=== PATIENT | female | born 1995 | race American Indian/Alaskan Native ===

== ENCOUNTER 2016-08-19 12:46 | Outpatient (CLI) | payer MEDICARE ==
[2016-08-19 13:26] LABS: Alanine Aminotransferase 16 units/L (7-56); Albumin 4.3 g/dL (3.9-5); Alkaline Phosphatase 197 units/L (35-129); Anion Gap 17 mmol/L; BUN/Creatinine Ratio 11.25; Bilirubin,Total 0.3 mg/dL (0.1-1.2); Blood Urea Nitrogen 9 mg/dL (7-17); Calcium 9.2 mg/dL (8.4-10.2); Carbon Dioxide 26 mmol/L (22-30); Chloride 101.6 mmol/L (98-107); Glucose 76 mg/dL (65-100); Potassium 4.5 mmol/L (3.6-5.0); Sodium 140 mmol/L (137-145); Total Protein 8.5 g/dL (6.3-8.2)
== END 2016-08-19 12:47 | disposition home or self-care (01) ==
LOC: LAB 12:46
PROVIDERS: ATTEND Nurse Practitioner Psychiatric/Mental Health
DX: F25.9 Schizoaffective disorder, unspecified (principal)
CPT/HCPCS: 36415; 80053; 84146; 84702

== ENCOUNTER 2017-11-21 13:42 | Emergency (ER) | payer MEDICARE ==
[2017-11-21 13:54] VITALS: BP 115/69
--- NOTE | 2017-11-21 14:57 | Emergency Department Report ---
ED Headache HPI - General Chief Complaint: Headache Stated Complaint: HEAD PAIN Time Seen by Provider: 11/21/17 14:31 Source: patient Exam Limitations: no limitations - History of Present Illness Initial Comments: She reports that she has had headache and dizziness for 2 weeks that's been intermittent since she has had injury while be place in padded cell at [facility]. She says she hit her head on a metal object and she passed out. Patient reports that she was let to the padded cell but reported that fall was not witnessed. She denies any nausea or vomiting. Denies any blurred vision. Denies any neck pain or stiffness. Patient said this happened between November 04 and while she was that [facility] but she is not sure of the date. She is at [facility] for acute psychosis from schizophrenia and bipolar disorder and she is currently staying at the [facility] where she reports that she will be going home soon. She reports her pain to right side of her head and she says she had a knot there but it went away. She states when she woke up she was naked. Pain is still at a time and comes and goes. Denies taking any medication for pain. Pain is achy, 2/10. Nothing makes it better nothing makes it worse. Timing/Duration: episodic, waxing and waning, other (approximately 2 weeks ago) Quality: mild, achy, pressure Head Injury Location: frontal Recent Head Trauma: head trauma > 24 hrs ago Modifying Factors: improves with: other (none) Associated Symptoms: nasal congestion, nasal drainage. denies: confusion, fatigue, facial pain, fever/chills, flushing, loss of consciousness, nausea/ vomiting, numbness in legs/feet, rash, seizures, sinus infection, stiff neck, vision changes, weakness Allergies/Adverse Reactions: Allergies No Known Allergies Allergy (Verified 07/04/14 02:34) Home Medications: Ambulatory Orders Benztropine [Cogentin] 1 mg PO HS 07/03/14 Citalopram Hydrobromide [celeXA] 20 mg PO DAILY 07/03/14 OXcarbazepine [Trileptal] 300 mg PO BID 07/03/14 Paliperidone Palmitate [Invega Sustenna] 117 mg IM 07/03/14 Prazosin [Minipress] 2 mg PO HS 07/03/14 Fluconazole [Diflucan TAB] 150 mg PO ONCE #2 tablet 02/20/15 Sulfamethoxazole/Trimethoprim [Bactrim DS TAB] 1 each PO BID #20 tablet Cetirizine HCl [ZyrTEC] 10 mg PO QAM 14 Days #14 capsule 11/21/17 Fluticasone [Flonase] 1 spray NS QDAY 14 Days #1 bottle 11/21/17 Ibuprofen [Motrin 600 MG tab] 600 mg PO Q8H PRN #12 tablet 11/21/17 ED Review of Systems ROS: Stated complaint: HEAD PAIN Other details as noted in HPI Constitutional: denies: chills, fever Eyes: denies: eye pain, eye discharge, vision change ENT: congestion. denies: ear pain, throat pain Respiratory: denies: cough, shortness of breath, wheezing Cardiovascular: denies: chest pain, palpitations, edema, syncope Endocrine: no symptoms reported Gastrointestinal: denies: nausea, vomiting Genitourinary: denies: urgency, dysuria, discharge Musculoskeletal: denies: back pain, joint swelling, arthralgia, myalgia Skin: denies: rash, lesions Neurological: headache. denies: weakness, numbness, paresthesias, abnormal gait , vertigo Psychiatric: denies: anxiety, depression Hematological/Lymphatic: denies: easy bleeding, easy bruising ED Past Medical Hx - Past Medical History Previous Medical History?: Yes Hx Psychiatric Treatment: Yes (depression/SCHIZOAFFECTIVE) - Surgical History Past Surgical History?: No - Family History Family history: asthma, lung disease - Social History Smoking Status: Never Smoker Substance Use Type: None Other Social History: Patient is currently staying at [facility] - Medications Home Medications: Home Medications Medication Instructions Recorded Confirmed Last Taken Type Benztropine [Cogentin] 1 mg PO HS 07/03/14 08/29/15 07/02/14 History Citalopram Hydrobromide [celeXA] 20 mg PO DAILY 07/03/14 08/29/15 07/03/14 History OXcarbazepine [Trileptal] 300 mg PO BID 07/03/14 08/29/15 07/03/14 History Paliperidone Palmitate [Invega 117 mg IM 07/03/14 07/03/14 06/08/14 History Sustenna] Prazosin [Minipress] 2 mg PO HS 07/03/14 08/29/15 07/03/14 History Fluconazole [Diflucan TAB] 150 mg PO ONCE #2 tablet 02/20/15 Unknown Rx Sulfamethoxazole/Trimethoprim 1 each PO BID #20 tablet 08/02/15 08/29/15 Unknown Rx [Bactrim DS TAB] Cetirizine HCl [ZyrTEC] 10 mg PO QAM 14 Days #14 capsule 11/21/17 Unknown Rx Fluticasone [Flonase] 1 spray NS QDAY 14 Days #1 bottle 11/21/17 Unknown Rx Ibuprofen [Motrin 600 MG tab] 600 mg PO Q8H PRN #12 tablet 11/21/17 Unknown Rx ED Physical Exam - General Limitations: No Limitations General appearance: alert, in no apparent distress - Head Head exam: Present: atraumatic, normocephalic, normal inspection, other (normal exam) - Expanded Head Exam Expanded Head exam: Absent: laceration, abrasion, contusion, hematoma, racoon eyes, hernandez's sign, general tenderness, tenderness of temporal artery, CSF rhinorrhea , CSF otorrhea - Eye Eye exam: Present: normal appearance, PERRL, EOMI. Absent: nystagmus, periorbital swelling, periorbital tenderness Pupils: Present: normal accommodation - ENT ENT exam: Present: normal exam (mucosa mucosa pale and boggy with clear drainage. Bilateral frontal and macular sinuses nontender to palpate.), normal orophraynx, mucous membranes moist, normal external ear exam, other. Absent: TM 's normal bilaterally (bilateral TM congested without erythema.) - Neck Neck exam: Present: normal inspection, full ROM, other (no C-spine tenderness). Absent: tenderness, meningismus, lymphadenopathy - Respiratory Respiratory exam: Present: normal lung sounds bilaterally. Absent: respiratory distress, chest wall tenderness - Cardiovascular Cardiovascular Exam: Present: regular rate, normal rhythm. Absent: systolic murmur, diastolic murmur - GI/Abdominal GI/Abdominal exam: Present: soft, normal bowel sounds. Absent: distended, tenderness, guarding, rebound, rigid, organomegaly, mass, bruit, pulsatile mass , hernia - Extremities Exam Extremities exam: Present: normal inspection, full ROM, normal capillary refill , other (no clubbing, cyanosis or edema. +2 pulses to all extremities and no neurovascular compromise). Absent: tenderness, pedal edema, joint swelling, calf tenderness - Back Exam Back exam: Present: normal inspection, full ROM, other (tablets without any difficulties). Absent: tenderness, CVA tenderness (R), CVA tenderness (L), muscle spasm, paraspinal tenderness, vertebral tenderness, rash noted - Neurological Exam Neurological exam: Present: alert, oriented X3, normal gait, reflexes normal. Absent: motor sensory deficit - Expanded Neurological Exam Expanded Neurological exam: Absent: innattentive, memory loss-remote event, memory loss- recent event, ataxia, receptive aphasia, expressive aphasia, total aphasia, tremor, protecting the airway Patient oriented to: Present: person, place, time Speech: Present: fluid speech Cranial nerves: EOM's Intact: Normal, Gag Reflex: Normal, Tongue Deviation: Normal, Nystagmus: Normal, Facial Sensation: Normal Cerebellar function: Romberg: Normal Upper motor neuron: Pronator Drift: Normal, Sensory Extinction: Normal Sensory exam: Upper Extremity Light Touch: Normal, Upper Extremity Temperature: Normal, UE 2 Point Discrimination: Normal, Lower Extremity Light Touch: Normal, Lower Extremity Temperature: Normal, LE 2 Point Discrimination: Normal Motor strength exam: RUE: 5, LUE: 5, RLE: 5, LLE: 5 Best Eye Response (Kenji): (4) open spontaneously Best Motor Response (Bushnell): (6) obeys commands Best Verbal Response (Kenji): (5) oriented Bushnell Total: 15 - Psychiatric Psychiatric exam: Present: normal affect, normal mood - Skin Skin exam: Present: warm, dry, intact, normal color. Absent: rash ED Course Vital Signs 11/21/17 13:48 Temperature 98.5 F Pulse Rate 82 Respiratory 16 Rate Blood Pressure 115/69 O2 Sat by Pulse 98 Oximetry - Reevaluation(s) Reevaluation #1: 11/21/17 15:12 Patient is stable, she says she took recent test at [facility] and it was negative. Awaiting CT scan of the head without contrast Reevaluation #2: 11/21/17 17:43 Patient is stable and was given Motrin 800 mg when necessary emergency room and also she has no dizziness at present. Tolerating oral fluids well ED Medical Decision Making - Radiology Data Radiology results: report reviewed CT head without contrast: Patient: LESLIE LOOMIS MR#: [id number] : 1995 Acct:[id number] Age/Sex: 22 / F ADM Date: 11/21/17 Loc: ED Attending Dr: Ordering Physician: DELBERT ESPOSITO Date of Service: 11/21/17 Procedure(s): CT head/brain wo con Accession Number(s): [id number] cc: DELBERT ESPOSITO FINAL REPORT PROCEDURE: CT head without contrast. TECHNIQUE: Computerized tomography of the head was performed without contrast material. HISTORY: Head injury, headache. COMPARISON: No prior studies are available for comparison. FINDINGS: The ventricles are normal in size. The miller matter and white matter appear normal. There are no mass lesions. There is no intracranial hemorrhage. The calvarium appears intact. The mastoid air cells and paranasal sinuses are clear as far as visualized. IMPRESSION: Normal study. Transcribed By: MRM Dictated By: TONIA SHAIKH MD Electronically Authenticated By: TONIA SHAIKH MD Signed Date/Time: 11/21/171650 DD/ 50 TD/TT: 11/21/171650 - Medical Decision Making ED course: 1:Acute headache status post head injury- Patient had CT scan of the head which reveals no abnormality. No acute extricate nail or intracranial abnormality. Patient given Motrin 800 mg emergency room and will be discharged home with Motrin to manage headache 2: Allergic rhinitis-patient found to have nasal mucosa pale boggy with clear drainage. Patient will be discharged home on Flonase and Zyrtec. Patient discharged home in stable condition to follow up with her primary care physician in 2-3 days. She voiced understanding the discharge instruction, diagnosis and treatment plan. Discharged home a prescription for Flonase, Zyrtec and Motrin - Differential Diagnosis traumatic brain injury, generalized headache, sinusitis, rhinitis Critical care attestation.: If time is entered above; I have spent that time in minutes in the direct care of this critically ill patient, excluding procedure time. ED Disposition Clinical Impression: Headache Qualifiers: Headache type: unspecified Headache chronicity pattern: acute headache Intractability: not intractable Qualified Code(s): R51 - Headache Allergic rhinitis Qualifiers: Allergic rhinitis trigger: unspecified Allergic rhinitis seasonality: unspecified seasonality Qualified Code(s): J30.9 - Allergic rhinitis, unspecified Disposition: DC-01 TO HOME OR SELFCARE Is pt being admited?: No Does the pt Need Aspirin: No Condition: Stable Instructions: Acute Headache (ED), Allergic Rhinitis (ED) Additional Instructions: Please increase her fluid intake Flush nostrils with saline nasal spray F/U with primary care physician as instructed Prescriptions: Cetirizine HCl [ZyrTEC] 10 mg PO QAM 14 Days #14 capsule Fluticasone [Flonase] 1 spray NS QDAY 14 Days #1 bottle Ibuprofen [Motrin 600 MG tab] 600 mg PO Q8H PRN #12 tablet PRN Reason: Pain Referrals: PRIMARY CARE, [Primary Care Provider] - 2-3 Days KATHLEEN MCCRARY MD [Staff Physician] - 2-3 Days Forms: Work/School Release Form(ED)
--- NOTE | 2017-11-21 16:55 | Cat Scan Report ---
FINAL REPORT PROCEDURE: CT head without contrast. TECHNIQUE: Computerized tomography of the head was performed without contrast material. HISTORY: Head injury, headache. COMPARISON: No prior studies are available for comparison. FINDINGS: The ventricles are normal in size. The miller matter and white matter appear normal. There are no mass lesions. There is no intracranial hemorrhage. The calvarium appears intact. The mastoid air cells and paranasal sinuses are clear as far as visualized. IMPRESSION: Normal study.
[2017-11-21] MEDS ORDERED: MOTRIN PO ONE (17:14)
== END 2017-11-21 18:03 | disposition home or self-care (01) ==
LOC: ED 13:42
DX: J30.9 Allergic rhinitis, unspecified (principal); R51 Headache
CPT/HCPCS: 70450

== ENCOUNTER 2018-01-29 10:13 | Emergency (ER) | payer MEDICARE ==
[2018-01-29 10:21] VITALS: BP 114/72
--- NOTE | 2018-01-29 11:06 | Emergency Department Report ---
ED Female HPI - General Chief complaint: Urogenital-Female Stated complaint: ITCHING/BREAKOUT Time Seen by Provider: 01/29/18 10:44 Source: patient Mode of arrival: Ambulatory Limitations: No Limitations - History of Present Illness Initial comments: This is a 22-year-old here complaining in of itching and breaking out nervous. She believes it is from the soap that she is using. Denies any concern for STD. She said this started 2 days ago. Discharge is white. Denies any pain at present. Denies any fever or chills. Denies any ear frequency or urgency. Denies any personal urination. Denies any back pain or abdominal pain. No concerns for . Denies . MD Complaint: vaginal discharge (l irritation) Onset/Timin -: days(s) Severity scale (0 -10): 0 Are you Now?: No Last Menstrual Period: 01/22/18 EDC: 10/29/18 Associated Symptoms: vaginal discharge, other (vaginal irritation). denies: vaginal bleeding, abdominal pain, nausea/vomiting, fever/chills, headaches, loss of appetite, dysuria, hematuria, rash, seizure, shortness of breath, syncope, weakness - Related Data Sexually active: Yes (with female) Home Medications Medication Instructions Recorded Confirmed Last Taken Benztropine [Cogentin] 1 mg PO HS 07/03/14 08/29/15 07/02/14 Citalopram Hydrobromide [celeXA] 20 mg PO DAILY 07/03/14 08/29/15 07/03/14 OXcarbazepine [Trileptal] 300 mg PO BID 07/03/14 08/29/15 07/03/14 Paliperidone Palmitate [Invega 117 mg IM 07/03/14 07/03/14 06/08/14 Sustenna] Prazosin [Minipress] 2 mg PO HS 07/03/14 08/29/15 07/03/14 Previous Rx's Medication Instructions Recorded Last Taken Type Fluconazole [Diflucan TAB] 150 mg PO ONCE #2 tablet 02/20/15 Unknown Rx Sulfamethoxazole/Trimethoprim 1 each PO BID #20 tablet 08/02/15 Unknown Rx [Bactrim DS TAB] Cetirizine HCl [ZyrTEC] 10 mg PO QAM 14 Days #14 capsule 11/21/17 Unknown Rx Fluticasone [Flonase] 1 spray NS QDAY 14 Days #1 bottle 11/21/17 Unknown Rx Ibuprofen [Motrin 600 MG tab] 600 mg PO Q8H PRN #12 tablet 11/21/17 Unknown Rx metroNIDAZOLE [Flagyl] 500 mg PO Q12HR 7 Days #14 tab 01/29/18 Unknown Rx Allergies Allergy/AdvReac Type Severity Reaction Status Date / Time No Known Allergies Allergy Verified 01/29/18 10:19 ED Review of Systems ROS: Stated complaint: ITCHING/BREAKOUT Other details as noted in HPI Constitutional: denies: chills, fever ENT: denies: throat pain, congestion Respiratory: denies: cough, shortness of breath, SOB with exertion, SOB at rest , wheezing Cardiovascular: denies: chest pain, palpitations Gastrointestinal: denies: abdominal pain, nausea, vomiting, diarrhea, constipation Genitourinary: discharge. denies: urgency, dysuria, frequency, hematuria, abnormal menses Musculoskeletal: denies: back pain, joint swelling, arthralgia, myalgia Skin: denies: rash, lesions, pruritus Neurological: paresthesias. denies: headache ED Past Medical Hx - Past Medical History Previous Medical History?: Yes Hx Psychiatric Treatment: Yes (depression/SCHIZOAFFECTIVE) - Surgical History Past Surgical History?: Yes - Family History Family history: hypertension - Social History Smoking Status: Never Smoker Substance Use Type: None - Medications Home Medications: Home Medications Medication Instructions Recorded Confirmed Last Taken Type Benztropine [Cogentin] 1 mg PO HS 07/03/14 08/29/15 07/02/14 History Citalopram Hydrobromide [celeXA] 20 mg PO DAILY 07/03/14 08/29/15 07/03/14 History OXcarbazepine [Trileptal] 300 mg PO BID 07/03/14 08/29/15 07/03/14 History Paliperidone Palmitate [Invega 117 mg IM 07/03/14 07/03/14 06/08/14 History Sustenna] Prazosin [Minipress] 2 mg PO HS 07/03/14 08/29/15 07/03/14 History Fluconazole [Diflucan TAB] 150 mg PO ONCE #2 tablet 02/20/15 Unknown Rx Sulfamethoxazole/Trimethoprim 1 each PO BID #20 tablet 08/02/15 08/29/15 Unknown Rx [Bactrim DS TAB] Cetirizine HCl [ZyrTEC] 10 mg PO QAM 14 Days #14 capsule 11/21/17 Unknown Rx Fluticasone [Flonase] 1 spray NS QDAY 14 Days #1 bottle 11/21/17 Unknown Rx Ibuprofen [Motrin 600 MG tab] 600 mg PO Q8H PRN #12 tablet 11/21/17 Unknown Rx metroNIDAZOLE [Flagyl] 500 mg PO Q12HR 7 Days #14 tab 01/29/18 Unknown Rx ED Physical Exam - General Limitations: No Limitations General appearance: alert, in no apparent distress - Head Head exam: Present: atraumatic, normocephalic, normal inspection - Eye Eye exam: Present: normal appearance, PERRL, EOMI Pupils: Present: normal accommodation - ENT ENT exam: Present: normal exam, normal orophraynx, mucous membranes moist - Neck Neck exam: Present: normal inspection, full ROM. Absent: tenderness, lymphadenopathy - Respiratory Respiratory exam: Present: normal lung sounds bilaterally. Absent: respiratory distress, chest wall tenderness - Cardiovascular Cardiovascular Exam: Present: regular rate, normal rhythm, normal heart sounds - GI/Abdominal GI/Abdominal exam: Present: soft, normal bowel sounds. Absent: distended, tenderness, guarding, rebound, rigid, organomegaly, mass - External exam: Present: normal external exam. Absent: erythema, swelling, lesions, lacerations, ecchymosis, bleeding Speculum exam: Present: normal speculum exam, vaginal discharge, cervical discharge. Absent: erythema, vaginal bleeding, foreign body, tissue, laceration Bi-manual exam: Present: normal bi-manual exam. Absent: cervical motion tendernes, adnexal tenderness, adnexal mass - Extremities Exam Extremities exam: Present: normal inspection, full ROM, normal capillary refill , other (No cce. + 2 pulses in all extremities, no neurovascular compromise). Absent: tenderness, pedal edema, joint swelling, calf tenderness - Back Exam Back exam: Present: normal inspection, full ROM, other (ambulates without any difficulties). Absent: tenderness, paraspinal tenderness, vertebral tenderness , rash noted - Neurological Exam Neurological exam: Present: alert, oriented X3, normal gait - Psychiatric Psychiatric exam: Present: normal affect, normal mood - Skin Skin exam: Present: warm, dry, intact, normal color. Absent: rash ED Course Vital Signs 01/29/18 10:19 Temperature 98.7 F Pulse Rate 66 Respiratory 18 Rate Blood Pressure 114/72 O2 Sat by Pulse 99 Oximetry - Reevaluation(s) Reevaluation #1: 01/29/18 12:38 Patient stable throughout ED course. ED Medical Decision Making - Lab Data Lab Results 01/29/18 Range/Units 11:12 Urine Color Yellow (Yellow) Urine Turbidity Clear (Clear) Urine pH 6.0 (5.0-7.0) Ur Specific [place] 1.024 (1.003-1.030) Urine Protein <15 mg/dl (Negative) mg/dL Urine Glucose (UA) Neg (Negative) mg/dL Urine Ketones Neg (Negative) mg/dL Urine Blood Neg (Negative) Urine Nitrite Neg (Negative) Urine Bilirubin Neg (Negative) Urine Urobilinogen 2.0 (<2.0) mg/dL Ur Leukocyte Esterase Tr (Negative) Urine WBC (Auto) 4.0 (0.0-6.0) /HPF Urine RBC (Auto) 3.0 (0.0-6.0) /HPF U Epithel Cells (Auto) 8.0 (0-13.0) /HPF Urine Mucus Few /HPF Urine HCG, Qual Negative (Negative) Wet prep shows greater than 20% clue cells, no trichomoniasis and no yeast. Gonorrhea and chlamydia test is pending. Patient is not concerned for STD and wants to wait until tests come back. - Medical Decision Making This is a 22-year-old here complaining in of itching and breaking out nervous. She believes it is from the soap that she is using. Denies any concern for STD. She said this started 2 days ago. Discharge is white. Denies any pain at present. Patient is here to be evaluated. Patient was seen and examined by myself. Abdominal and back exam is normal. Pelvic exam shows vaginal and cervix discharged with fishy odor. Her cervix is pink without any erythema. No vaginal bleeding. No vaginal mass or cyst. Bimanual exam without any adnexal tenderness or cervical motion tenderness. External vaginal area appears normal. Without any rash or lesions. Patient had urinalysis which shows trace leukocyte Estrace otherwise normal, wet prep positive for bacterial vaginosis and negative for yeast and Trichomonas. Gonorrhea and chlamydia test is pending . I discussed results at prep and urinalysis with patient and also findings on pelvic exam and bimanual with diagnosis and she voiced understanding. She understands treatment plan. Assessment/plan Vaginal discharge-wet prep show greater than 20% clue cells, no trichomoniasis or yeast. Patient with bacterial vaginosis. I discussed that I will treat her with Flagyl for 7 days. Gonorrhea and chlamydia test is pending and patient is not concerned for gonorrhea and chlamydia and she was to wait until her test comes back. I discussed with her that she needs to follow up with [facility] for follow-up bacterial vaginosis and she is to return to the medical records department in 5 days with her ID to get results of gonorrhea and chlamydia tests that she voiced understanding. Patient educated on safe sex, medication, diagnosis, treatment plan, vaginal douche and she voiced understanding. Patient is stable and discharged home in stable condition with prescription for Flagyl. Her vital signs are stable and she is afebrile. She is to follow up with [facility] and she voiced understanding. Critical care attestation.: If time is entered above; I have spent that time in minutes in the direct care of this critically ill patient, excluding procedure time. ED Disposition Clinical Impression: Bacterial vaginosis Disposition: DC-01 TO HOME OR SELFCARE Is pt being admited?: No Does the pt Need Aspirin: No Condition: Stable Instructions: Bacterial Vaginosis (ED) Additional Instructions: Please follow-up with my [facility] in 3-5 days. The case and for bacterial vaginosis but please do not drink alcohol while taking this medication as it can cause negative effect. Prescriptions: metroNIDAZOLE [Flagyl] 500 mg PO Q12HR 7 Days #14 tab Referrals: PRIMARY CARE, [Primary Care Provider] - 3-5 Days [facility] [Provider Group] - 3-5 Days Forms: STI Treatment and Prevention, Work/School Release Form(ED)
[2018-01-29 11:33] LABS: Bilirubin,Urine NEG (Negative); Blood,Urine NEG (Negative); Color,Urine Yellow (Yellow); Mucus,Urine FEW /HPF; Protein,Urine <15 mg/dL mg/dL (Negative)
[2018-01-29 11:34] LABS: HCG Qualitative,Urine Negative (Negative)
== END 2018-01-29 12:40 | disposition home or self-care (01) ==
LOC: ED 10:13
DX: N76.0 Acute vaginitis (principal)
CPT/HCPCS: 81001; 81025; 87086; 87210; 87591; 99283

== ENCOUNTER 2018-09-19 15:48 | Emergency (ER) | payer MEDICARE ==
--- NOTE | 2018-09-19 16:26 | Emergency Department Report ---
Blank Doc - Documentation Documentation: This is a 22--year-old female that presents with nausea and abdominal pain. D enies any vomiting. This initial assessment/diagnostic orders/clinical plan/treatment(s) is/are subject to change based on patient's health status, clinical progression and re- assessment by fellow clinical providers in the ED. Further treatment and workup at subsequent clinical providers discretion. Patient/guardians urged not to elope from the ED as their condition may be serious if not clinically assessed and managed. Initial orders include: 1- Patient sent to [facility] for further evaluation and treatment 2- labs 3- ua
[2018-09-19 16:44] LABS: Basophils % (Auto) 0.3 % (0.0-1.8); Eosinophils # (Auto) 0.1 K/mm3 (0.0-0.4); Eosinophils % (Auto) 1.8 % (0.0-4.3); Hematocrit 40.4 % (30.3-42.9); Hemoglobin 13.3 gm/dl (10.1-14.3); Lymphocytes # (Auto) 1.6 K/mm3 (1.2-5.4); Lymphocytes % (Auto) 26.7 % (13.4-35.0); Mean Corpuscular HGB Conc 33 % (30-34); Mean Corpuscular Volume 89 fl (79-97); Monocytes # (Auto) 0.4 K/mm3 (0.0-0.8); Platelet Count 264 K/mm3 (140-440); Red Blood Count 4.53 M/mm3 (3.65-5.03); Red Cell Distribution Width 13.9 % (13.2-15.2)
[2018-09-19 17:22] LABS: Alanine Aminotransferase 10 units/L (7-56); Albumin 4.6 g/dL (3.9-5); BUN/Creatinine Ratio 13; Blood Urea Nitrogen 9 mg/dL (7-17); Hemolysis Index 3
[2018-09-19 17:35] LABS: Bacteria,Urine 1+ /HPF (Negative); Bilirubin,Urine NEG (Negative); Blood,Urine MOD (Negative); Color,Urine Yellow (Yellow); Mucus,Urine FEW /HPF; WBC,Urine < 1.0 /HPF (0.0-6.0)
--- NOTE | 2018-09-19 22:35 | Emergency Department Report ---
Vomiting/Diarrhea - HPI Duration: Today Severity: moderate Nausea/Vomiting Severity: Mild Diarrhea Severity: Moderate Pain Severity: None Symptoms: Yes Watery Diarrhea, Yes Able to Tolerate Fluids, Yes Contacts w/ Similar Symptoms, No Bloody diarrhea, No Fever, No Recent Unusual Foods, No Recent Untreated Water, No Recent use of Antibiotics, No Family w/ Similar Symptoms, No Rash, No Hematuria, No Recent URI Symptoms Other History: Pt is a 22 yo female who presents to the ED with c/o N/V/D that began today. She has a sick contact at [place] with the same sx. She denies any abdominal pain, fever, urinary sx, or blood in the vomit/stool. She is able to tolerate liquids. <SABRINA JACKSON - Last Filed: 09/19/18 22:31> <VIRAJ GUADALUPE - Last Filed: 09/20/18 01:59> - HPI Chief Complaint: Nausea/Vomiting/Diarrhea Stated Complaint: ABD PAIN Time Seen by Provider: 09/19/18 16:25 ED Review of Systems ROS: Stated complaint: ABD PAIN Other details as noted in HPI Comment: All other systems reviewed and negative <SABRINA JACKSON - Last Filed: 09/19/18 22:31> ROS: Stated complaint: ABD PAIN Other details as noted in HPI <VIRAJ GUADALUPE - Last Filed: 09/20/18 01:59> ED Past Medical Hx - Past Medical History Previous Medical History?: No Hx Psychiatric Treatment: Yes (depression/SCHIZOAFFECTIVE) Additional medical history: PTSD - Surgical History Past Surgical History?: No - Social History Smoking Status: Never Smoker Substance Use Type: None <SABRINA JACKSON - Last Filed: 09/19/18 22:31> <VIRAJ GUADALUPE - Last Filed: 09/20/18 01:59> - Medications Home Medications: Home Medications Medication Instructions Recorded Confirmed Last Taken Type Benztropine [Cogentin] 1 mg PO HS 07/03/14 07/03/18 07/02/14 History Citalopram Hydrobromide [celeXA] 20 mg PO DAILY 07/03/14 07/03/18 07/03/14 History OXcarbazepine [Trileptal] 300 mg PO BID 07/03/14 07/03/18 07/03/14 History Paliperidone Palmitate [Invega 117 mg IM 07/03/14 07/03/14 06/08/14 History Sustenna] Prazosin [Minipress] 2 mg PO HS 07/03/14 07/03/18 07/03/14 History Cetirizine HCl [ZyrTEC] 10 mg PO QAM 14 Days #14 capsule 11/21/17 07/03/18 Unknown Rx Ondansetron [Zofran Odt] 4 mg PO Q8HR PRN #14 tab.rapdis 09/19/18 Unknown Rx Vomiting Diarrhea Exam - Exam General: Vital signs noted. No distress. Alert and acting appropriately. pt is non toxic appearing, appears well hydrated HEENT: Yes Moist Mucous Membranes, No Rhinorrhea, No Conjuctival Injection Neck: No Adenopathy, No Rigidity Lungs: Yes Clear Lung Sounds, Yes Good Air Exchange, No Wheezes, No Stridor, No Cough, No Nasal Flaring, No Retractions, No Use of Accessory Muscles Heart exam: Regular: Yes, Murmur: No, Tachycardia: No Abdomen: Tenderness: No, Peritoneal Signs: No, Distention: No, Hyperactive Bowel sounds: No Skin exam: Rash: No, Edema: No, Normal turgor: Yes Neurologic: Alert and oriented, no deficits. Musculoskeletal: Unremarkable. <SABRINA JACKSON - Last Filed: 09/19/18 22:31> - Exam General: Vital signs noted. No distress. Alert and acting appropriately. Neurologic: Alert and oriented, no deficits. Musculoskeletal: Unremarkable. <VIRAJ GUADALUPE - Last Filed: 09/20/18 01:59> ED Course Vital Signs 09/19/18 16:25 Temperature 99.0 F Pulse Rate 64 Respiratory 18 Rate Blood Pressure 119/75 O2 Sat by Pulse 98 Oximetry <SABRINA JACKSON - Last Filed: 09/19/18 22:31> Vital Signs 09/19/18 09/19/18 16:25 22:45 Temperature 99.0 F 98.7 F Pulse Rate 64 70 Respiratory 18 19 Rate Blood Pressure 119/75 Blood Pressure 121/68 [Left] O2 Sat by Pulse 98 98 Oximetry <VIRAJ GUADALUPE - Last Filed: 09/20/18 01:59> ED Medical Decision Making - Lab Data Result diagrams: 09/19/18 16:35 09/19/18 16:35 - Medical Decision Making Pt is a 22 yo female who presents to the ED with N/V/D that began today. Pt is able to tolerate liquids, has a sprite that she has been drinking while in the ED. no abd pain, no fever, no urinary sx, no blood in the stool or vomit. Abd exam is normal. Pt is well hydrated. VSS. Labs WNL. Advised pt to continue to drink plenty of fluids, bland diet. Advised to follow up with PCP in the next 2- 3 days. Return to the ED for any new or worsening symptoms. - Differential Diagnosis Gastroenteritis, N/V/D, Viral syndrome <SABRINA JACKSON. - Last Filed: 09/19/18 22:31> - Lab Data Result diagrams: 09/19/18 16:35 09/19/18 16:35 Lab Results 09/19/18 09/19/18 09/19/18 Range/Units 16:35 16:35 16:35 WBC 6.0 (4.5-11.0) K/mm3 RBC 4.53 (3.65-5.03) M/mm3 Hgb 13.3 (10.1-14.3) gm/dl Hct 40.4 (30.3-42.9) % MCV 89 (79-97) fl MCH 29 (28-32) pg MCHC 33 (30-34) % RDW 13.9 (13.2-15.2) % Plt Count 264 (140-440) K/mm3 Lymph % (Auto) 26.7 (13.4-35.0) % [place] % (Auto) 6.0 (0.0-7.3) % Eos % (Auto) 1.8 (0.0-4.3) % Baso % (Auto) 0.3 (0.0-1.8) % Lymph # 1.6 (1.2-5.4) K/mm3 [place] # 0.4 (0.0-0.8) K/mm3 Eos # 0.1 (0.0-0.4) K/mm3 Baso # 0.0 (0.0-0.1) K/mm3 Seg Neutrophils % 65.2 (40.0-70.0) % Seg Neutrophils # 3.9 (1.8-7.7) K/mm3 Sodium 142 (137-145) mmol/L Potassium 4.0 (3.6-5.0) mmol/L Chloride 104.2 (98-107) mmol/L Carbon Dioxide 26 (22-30) mmol/L Anion Gap 16 mmol/L BUN 9 (7-17) mg/dL Creatinine 0.7 (0.7-1.2) mg/dL Estimated GFR > 60 ml/min BUN/Creatinine Ratio 13 % Glucose 82 (65-100) mg/dL Calcium 9.0 (8.4-10.2) mg/dL Total Bilirubin 0.20 (0.1-1.2) mg/dL AST 15 (5-40) units/L ALT 10 (7-56) units/L Alkaline Phosphatase 91 (35-129) units/L Total Protein 7.8 (6.3-8.2) g/dL Albumin 4.6 (3.9-5) g/dL Albumin/Globulin Ratio 1.4 % Lipase 21 (13-60) units/L HCG, Qual Negative (Negative) Urine Color (Yellow) Urine Turbidity (Clear) Urine pH (5.0-7.0) Ur Specific [place] (1.003-1.030) Urine Protein (Negative) mg/dL Urine Glucose (UA) (Negative) mg/dL Urine Ketones (Negative) mg/dL Urine Blood (Negative) Urine Nitrite (Negative) Urine Bilirubin (Negative) Urine Urobilinogen (<2.0) mg/dL Ur Leukocyte Esterase (Negative) Urine WBC (Auto) (0.0-6.0) /HPF Urine RBC (Auto) (0.0-6.0) /HPF U Epithel Cells (Auto) (0-13.0) /HPF Urine Bacteria (Auto) (Negative) /HPF Urine Mucus /HPF 09/19/18 Range/Units 17:00 WBC (4.5-11.0) K/mm3 RBC (3.65-5.03) M/mm3 Hgb (10.1-14.3) gm/dl Hct (30.3-42.9) % MCV (79-97) fl MCH (28-32) pg MCHC (30-34) % RDW (13.2-15.2) % Plt Count (140-440) K/mm3 Lymph % (Auto) (13.4-35.0) % [place] % (Auto) (0.0-7.3) % Eos % (Auto) (0.0-4.3) % Baso % (Auto) (0.0-1.8) % Lymph # (1.2-5.4) K/mm3 [place] # (0.0-0.8) K/mm3 Eos # (0.0-0.4) K/mm3 Baso # (0.0-0.1) K/mm3 Seg Neutrophils % (40.0-70.0) % Seg Neutrophils # (1.8-7.7) K/mm3 Sodium (137-145) mmol/L Potassium (3.6-5.0) mmol/L Chloride (98-107) mmol/L Carbon Dioxide (22-30) mmol/L Anion Gap mmol/L BUN (7-17) mg/dL Creatinine (0.7-1.2) mg/dL Estimated GFR ml/min BUN/Creatinine Ratio % Glucose (65-100) mg/dL Calcium (8.4-10.2) mg/dL Total Bilirubin (0.1-1.2) mg/dL AST (5-40) units/L ALT (7-56) units/L Alkaline Phosphatase (35-129) units/L Total Protein (6.3-8.2) g/dL Albumin (3.9-5) g/dL Albumin/Globulin Ratio % Lipase (13-60) units/L HCG, Qual (Negative) Urine Color Yellow (Yellow) Urine Turbidity Clear (Clear) Urine pH 8.0 H (5.0-7.0) Ur Specific [place] 1.029 (1.003-1.030) Urine Protein 30 mg/dl (Negative) mg/dL Urine Glucose (UA) Neg (Negative) mg/dL Urine Ketones Neg (Negative) mg/dL Urine Blood Mod (Negative) Urine Nitrite Neg (Negative) Urine Bilirubin Neg (Negative) Urine Urobilinogen 2.0 (<2.0) mg/dL Ur Leukocyte Esterase Neg (Negative) Urine WBC (Auto) < 1.0 (0.0-6.0) /HPF Urine RBC (Auto) 2.0 (0.0-6.0) /HPF U Epithel Cells (Auto) 2.0 (0-13.0) /HPF Urine Bacteria (Auto) 1+ (Negative) /HPF Urine Mucus Few /HPF <VIRAJ GUADALUPE - Last Filed: 09/20/18 01:59> Critical care attestation.: If time is entered above; I have spent that time in minutes in the direct care of this critically ill patient, excluding procedure time. <SABRINA JACKSON - Last Filed: 09/19/18 22:31> Critical care attestation.: If time is entered above; I have spent that time in minutes in the direct care of this critically ill patient, excluding procedure time. <VIRAJ GUADALUPE - Last Filed: 09/20/18 01:59> ED Disposition Is pt being admited?: No Does the pt Need Aspirin: No Time of Disposition: 22:37 <SABRINA JACKSON - Last Filed: 09/19/18 22:31> Is pt being admited?: No Does the pt Need Aspirin: No <VIRAJ GUADALUPE - Last Filed: 09/20/18 01:59> Clinical Impression: Nausea vomiting and diarrhea Disposition: - TO HOME OR SELFCARE Condition: Stable Instructions: Acute Nausea and Vomiting (ED) Additional Instructions: Follow up with primary care doctor in the next 2-3 days. Continue to drink plenty of fluids including water, gatorade/powerade, or pedialyte. Take zofran as prescribed as needed for vomiting. Return to the emergency room for any new or worsening symptoms. Prescriptions: Ondansetron [Zofran Odt] 4 mg PO Q8HR PRN #14 tab.rapdis PRN Reason: Nausea And Vomiting [facility]: [facility] MD BERNICE [Primary Care Provider] - 2-3 Days Print Language: TONGAN
[2018-09-19 23:09] VITALS: BP 121/68
== END 2018-09-19 22:45 | disposition home or self-care (01) ==
LOC: ED 15:48
DX: R11.2 Nausea with vomiting, unspecified (principal); R19.7 Diarrhea, unspecified
CPT/HCPCS: 36415; 80053; 81001; 83690; 84703; 85025; 99283

== ENCOUNTER 2020-02-16 21:40 | Emergency (ER) | payer MEDICARE, OTHER ==
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
[2020-02-16 22:20] VITALS: BP 113/67
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
== END 2020-02-17 04:00 | disposition home or self-care (01) ==
LOC: ED 21:40
DX: S00.83XA Contusion of other part of head, initial encounter (principal); S13.4XXA Sprain of ligaments of cervical spine, initial encounter; F43.11 Post-traumatic stress disorder, acute; F25.8 Other schizoaffective disorders; Z79.899 Other long term (current) drug therapy; X58.XXXA Exposure to other specified factors, initial encounter; Y93.89 Activity, other specified; Y92.89 Other specified places as the place of occurrence of the external cause; Y99.8 Other external cause status
CPT/HCPCS: 36415; 70450; 72125; 72128; 84703

== ENCOUNTER 2020-04-17 10:42 | Emergency (ER) | payer MEDICARE, OTHER ==
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
== END 2020-04-17 13:10 | disposition left against medical advice (07) ==
LOC: ED 10:42
DX: M79.645 Pain in left finger(s) (principal); F32.9 Major depressive disorder, single episode, unspecified; Z79.899 Other long term (current) drug therapy; Z53.21 Procedure and treatment not carried out due to patient leaving prior to being seen by health care provider

== ENCOUNTER 2022-02-22 20:46 | Emergency (ER) | payer MEDICARE ==
--- NOTE | 2022-02-22 23:00 | Vascular Lab Report ---
DUPLEX DOPPLER LOWER EXTREMITY VEINS, LEFT INDICATION / CLINICAL INFORMATION: pain -. TECHNIQUE: Duplex doppler imaging was performed through the veins of the left lower extremity using v enous compression and other maneuvers. COMPARISON: None available. FINDINGS: LEFT COMMON FEMORAL VEIN: Negative. LEFT FEMORAL VEIN: Negative. LEFT POPLITEAL VEIN: Negative. LEFT CALF VEINS: Negative. ADDITIONAL FINDINGS: None. IMPRESSION: 1. No sonographic evidence for DVT in the left lower extremity. Signer Name: Jayjay Wheeler MD Signed: 02/22/2022 10:56 PM Workstation Name: [id number]
[2022-02-23] MEDS ORDERED: IBUPROFEN 600 MG TAB PO ONE (04:19)
[2022-02-23] MEDS ORDERED: ACETAMINOPHEN 500 MG TAB PO ONE (04:20)
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
[2022-02-23 05:47] VITALS: BP 118/69
== END 2022-02-23 05:47 | disposition home or self-care (01) ==
LOC: ED 20:46
DX: S76.912A Strain of unspecified muscles, fascia and tendons at thigh level, left thigh, initial encounter (principal); M62.831 Muscle spasm of calf; X58.XXXA Exposure to other specified factors, initial encounter; Y93.9 Activity, unspecified; Y92.89 Other specified places as the place of occurrence of the external cause; Y99.8 Other external cause status
CPT/HCPCS: 99283